=== PATIENT | male | born 1980 | race Caucasian/White ===

== ENCOUNTER 2021-01-12 20:53 | Emergency (ER) | payer OTHER ==
[2021-01-12 22:10] LABS: HEMOGLOBIN 12.9 gm/dl (14.0-17.5); RED BLOOD COUNT 4.29 M/UL (4.20-5.50); WHITE BLOOD COUNT 10.6 K/UL (4.5-11.0)
[2021-01-12 22:27] LABS: BUN/CREATININE RATIO 9 (0-10)
== END 2021-01-12 22:42 | disposition home or self-care (01) ==
LOC: ER1 20:53
PROVIDERS: Family Medicine
DX: F99 Mental disorder, not otherwise specified (principal); F17.210 Nicotine dependence, cigarettes, uncomplicated; Z59.0 Homelessness
CPT/HCPCS: 80053; 83690; 85025; 99284

== ENCOUNTER 2021-01-12 23:47 | Emergency (ER) | payer OTHER | END 2021-01-13 07:31 | disposition home or self-care (01) | LOC: ER1 23:47 | DX: R51.9 Headache, unspecified (principal); Z20.822 Contact with and (suspected) exposure to COVID-19 | CPT/HCPCS: 99284; Q0177; U0002 ==